=== PATIENT | female | born 1975 | race Asian ===

== ENCOUNTER 2024-01-09 19:44 | Emergency (ER) | payer BC ==
[~2024-01-09] VITALS: Ht 162.6 cm; Wt 62.0 kg
[2024-01-09 19:51] VITALS: O2SAT 98
[2024-01-09] MEDS: DEXAMETHASONE 10 MG/ML VIAL IM ONE (20:51)
[2024-01-09] MEDS: ONDANSETRON HCL 4MG TABLET PO ONE (20:51)
[2024-01-09] MEDS: DIPHENHYDRAMINE 25MG CAPSULE PO ONE (20:51)
[2024-01-09] MEDS ORDERED: EPIN0.3P3 IM (23:13)
[2024-01-09 23:15] VITALS: BP 121/77; PULSE 84; RESP 17; TEMP 36.66960; O2SAT 100
== END 2024-01-10 | disposition home or self-care (01) ==
LOC: ER 19:44
DX: T78.40XA Allergy, unspecified, initial encounter (principal); J45.909 Unspecified asthma, uncomplicated; Z90.710 Acquired absence of both cervix and uterus; X58.XXXA Exposure to other specified factors, initial encounter
CPT/HCPCS: 99283; 96372; Q0163; Q0162; J1100